=== PATIENT | female | born 1995 ===

== ENCOUNTER 2024-06-05 20:10 | Emergency (ER) | payer MEDICAID, SELFPAY ==
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
[2024-06-05 20:58] VITALS: BP 105/70; PULSE 74; RESP 18; TEMP 37.2; O2SAT 99; BMI 27.2
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
--- NOTE | 2024-06-05 20:59 | ECG_ITS ---
Test Reason : chest pain Blood Pressure : */* mmHG Vent. Rate : 63 BPM Atrial Rate : 63 BPM P-R Int : 132 ms QRS Dur : 82 ms QT Int : 392 ms P-R-T Axes : 46 73 46 degrees QTcB Int : 401 ms Normal sinus rhythm with sinus arrhythmia Normal ECG No previous ECGs available Referred By: Fiordaliza Rojas Electronically Signed By: JOSE DANIEL MADERA MD
[2024-06-05 21:40] LABS: MANUAL DIFF FLAG NO
[2024-06-05 21:42] LABS: Basophils Percent Auto 0.2 % (0-2); Eosinophils Absolute Auto 0.2 X10*3/uL (0.0-0.4); Eosinophils Percent Auto 1.8 % (0-4); Hematocrit 35.8 % (37.0-47.0); Imm Gran Abs Auto 0.04 X10*3/uL (0.00-0.03); Imm Gran Pct Auto 0.3 % (0.0-0.4); Lymphocytes Absolute Auto 2.1 X10*3/uL (1.2-4.9); Lymphocytes Percent Auto 17.3 % (20-40); Mean Corpuscular HGB Conc 33.5 g/dl (31.0-35.0); Mean Corpuscular Hemoglobin 31.6 pg (27.0-33.0); Mean Corpuscular Volume 94.2 fL (80.0-98.0); Monocytes Absolute Auto 0.9 X10*3/uL (0.1-1.2); Monocytes Percent Auto 7.1 % (2-11); Neutrophils Absolute Auto 8.8 x10*3/uL (2.0-8.3); Neutrophils Percent Auto 73.3 % (45-73); Platelet Count 205 X10*3/uL (160-400); Red Cell Distribution Width 12.9 % (11.0-16.0); White Blood Count 12.1 X10*3/uL (4.8-10.8)
[2024-06-05 21:45] LABS: VBG Base Excess -2.9 mmol/L; VBG HCO3 20 mmol/L (22-26); VBG pCO2 32 mmHg; VBG pH 7.41 (7.32-7.43); VBG pO2 104 mmHg
[2024-06-05 21:53] LABS: Venous Blood Gas Refer to POC result
[2024-06-05 21:53] LABS: Carbon Monoxide POC 5.5 %
[2024-06-05 21:54] LABS: Carbon Monoxide Refer to POC result
--- NOTE | 2024-06-05 21:54 | PC.NURSE ---
this rn took critical lab value- carbon monoxide 5.5. dr. ruvalcaba aware.
[2024-06-05 22:05] LABS: Blood Urea Nitrogen 15 mg/dL (9-16); Calcium 8.6 mg/dL (8.4-10.2); Creatinine Clr Calc Pharmacy 83.7; Estimated Glomerular Filt Rate > 60; Glucose Random 99 mg/dL (60-115)
[2024-06-05] MEDS: Albuterol Sulfate 90 MCG 8 GM INHALER 4 PUFF INHALE (23:08)
[2024-06-05] MEDS: predniSONE 20 MG TABLET 40 MG PO (23:08)
[2024-06-05 23:14] VITALS: BP 105/71; PULSE 61; RESP 18; TEMP 37; O2SAT 99
[2024-06-05 23:37] LABS: Anion Gap 12 (12-20); Carbon Dioxide 18 mmol/L (22-29); Chloride 113 mmol/L (96-108); Potassium 4.6 mmol/L (3.3-5.1); Sodium 138 mmol/L (135-145)
== END 2024-06-05 23:21 | disposition home or self-care (01) ==
LOC: HO.ED 23:10
PROVIDERS: Registered Nurse Emergency; Emergency Provider Internal Medicine
DX: T59.811A Toxic effect of smoke, accidental (unintentional), initial encounter (principal); J45.909 Unspecified asthma, uncomplicated; Y92.89 Other specified places as the place of occurrence of the external cause
CPT/HCPCS: 36415; 71046; 80048; 82375; 82803; 85025; 93005; 99283; 99284

== ENCOUNTER → 2024-06-05 20:59 | Outpatient (BNV) | payer MEDICAID, SELFPAY | PROVIDERS: Visit Provider Radiology Diagnostic Radiology | DX: J70.5 Respiratory conditions due to smoke inhalation (principal) | CPT/HCPCS: 71046 ==

== ENCOUNTER → 2024-06-05 20:59 | Outpatient (BNV) | payer MEDICAID, SELFPAY | PROVIDERS: Emergency Provider Internal Medicine; Visit Provider Internal Medicine Cardiovascular Disease | DX: R07.9 Chest pain, unspecified (principal) | CPT/HCPCS: 93010 ==

== ENCOUNTER 2024-09-23 15:41 | Emergency (ER) | payer MEDICAID, SELFPAY ==
--- NOTE | ~2024-09-23 | CT_ITS ---
CLINICAL HISTORY: sore throat, induration of L submental region CT soft tissue neck with contrast Comparison: None available Findings: The tonsils are enlarged and edematous, greater on the left. There is a left peritonsillar low attenuating lesion with subtle peripheral enhancement measuring 0.9 x 2.1 x 1.7 cm (measured on series 2, image 40 and series 6, image 26). There is a 2nd low attenuating lesion superiorly with definitive peripheral enhancement in the left peritonsillar region measuring 0.7 x 0.8 x 1.0 cm ( measured series 2, image 47 and series 6, image 28 ). Otherwise normal pharyngeal mucosa, oral cavity and larynx. Cervical lymphadenopathy measures up to 1.4 cm in short axis. Normal parotid and submandibular glands. Unremarkable thyroid. Normal vessels and carotid space. No acute fracture. The lung apices are clear. Impression: Tonsillitis. Left peritonsillar phlegmon/ developing abscess measuring up to 2.1 cm. Associated lymphadenopathy. This document has been electronically signed by: Ana Lilia Phelps MD on 09/23/2024 19:11:42
[2024-09-23 15:45] VITALS: BP 102/70; PULSE 72; RESP 16; TEMP 36.7; O2SAT 99; BMI 26.3
--- NOTE | 2024-09-23 16:00 | ED_ITS ---
HPI - General Adult General Chief complaint: General Medical Stated complaint: Sore throat/Body aches Time Seen by Provider: 09/23/24 16:03 Source: patient Mode of arrival: ambulatory Limitations: no limitations History of Present Illness ED Provider: Faustina Moore PA-C HPI narrative: 28-year-old female without a significant medical history presents to the ED after developing a sore throat around 3:00 a.m. today while at work. Patient states this started experiencing difficulty swallowing, with pain of the left jaw/neck. Patient states they were having difficulty sleeping after getting home from work due to pain. Patient has not taken any medication for pain management. Denies sick contacts. Related Data Previous Rx's ?Medication ?Instructions ?Recorded albuterol sulfate 90 mcg/actuation 2 puff inhalation Q 6H PRN 06/05/24 aerosol inhaler shortness of breath or wheez ing #8.5 grams prednisone 20 mg tablet 40 mg (2 x 20 mg) PO DAILY # 10 tabs 06/05/24 acetaminophen 160 mg/5 mL oral 640 mg (20 mL) PO Q6H P RN fever or 09/23/24 liquid pain #473 mL amoxicillin 250 mg-potassium 10 ml PO TID 10 days #300 mL 09/23/24 clavulanate 62.5 mg/5 mL oral suspension (Augmentin) oxycodone 5 mg tablet 5 mg PO Q6H PRN pain #14 tab s 09/23/24 Allergies Allergy/AdvReac Type Severity Reaction Status Date / Time ibuprofen Allergy Unknown Verified 09/23/24 15:51 Review of Systems 2 Review of Systems: CONST: Negative for fever, body aches and chills. HENT: Negative for neck pain/stiffness, headache, congestion, sore throat, swelling. POS sore throat EYES: Negative for discharge/pain or vision changes. RESP: Negative for cough/hemoptysis and shortness of breath. CV: Negative chest pain, difficulty breathing, palpitations. ABD: Negative pain, nausea, vomiting. : Negative increase frequency, dysuria, blood in urine or stool. MUSC: Negative for muscle aches, edema. SKIN: Negative rash, lesions/sores. NEURO: Negative headache, dizziness, weakness. Yes all other systems are reviewed and are negative PMFSH Past Medical History Attestation statement: The following information was validated with the patient. Source: old records reviewed and nursing notes reviewed Physical Exam ED Vital Signs: Vital Signs - 24 hr 09/23/24 15:45 09/23/24 18:16 Temperature 98.1 F 98.2 F Pulse Rate 72 66 Respiratory Rate 16 16 Blood Pressure 102/70 111/62 Pulse Oximetry 99 98 Oxygen Delivery Method Room Air Room Air BMI result Body Mass Index 26.3 GENERAL APPEARANCE: ?AxOx4, generally well-appearing, no acute distress. HEENT: ?NC, AT. MMM. EOMI, clear conjunctiva, posterior oropharynx with mild erythema, tonsillar edema of the left side, mild submental induration, no sublingual edema, no trismus, handling oral secretions, airway protected, speaking full clear sentences, NECK: ?Anterior lymphadenopathy of the left side.? No stiffness or restricted ROM. HEART:? Normal rate and regular rhythm, normal S1/S2, no m/r/g LUNGS:? CTAB, moving air well. No crackles or wheezes are heard. ABDOMEN: ?Soft, nontender, nondistended with good bowel sounds heard. EXTREMITIES: ?Without cyanosis, clubbing or edema. NEUROLOGICAL: ?Grossly nonfocal. Alert and oriented, moving all 4 extremities. Observed to ambulate with normal gait. Skin: ?Warm and dry without any rash. Course Course Course Narrative: This is a Rapid Medical Examination (RME) performed by César Mahajan PA-C in triage. Full HPI, ROS, assessment and treatment plan per primary provider in the Main ED. 28 yo presenting for evaluation of sore throat, body aches, headache and subjective fevers at home that started last night. no known sick contacts. VSS in triage. appears well Plan: strep and viral swabs Medications Administered Discontinued Medications Generic Name Dose Route Start Last Admin Trade Name Freq PRN Reason Stop Dose Admin Ceftriaxone Sodium 2 gm 09/23/24 16:48 09/23/24 18:41 Ceftriaxone Sodium 2 Gm Vial IVPUSH 09/23/24 16:49 2 gm ONCE ONE Administration Dexamethasone Sodium Phosphate 10 mg 09/23/24 16:48 09/23/24 18:41 Dexamethasone Sod Phosphate 10 Mg/Ml Vial IVPUSH 09/23/24 16:49 10 mg ONCE ONE Administration Lactated Ringer's 1,000 mls @ 999 mls/hr 09/23/24 16:48 09/23/24 18:42 Lr IV 09/23/24 17:48 999 mls/hr .Q1H1M ONE Administration Acetaminophen 1,000 mg in 100 mls @ 400 mls/hr 09/23/24 16:48 09/23/24 18:42 Ofirmev IV 09/23/24 17:02 400 mls/hr ONCE ONE Administration Iohexol 100 ml 09/23/24 18:30 09/23/24 18:31 Iohexol 350 Mg/Ml 100 Ml Infus..Btl IV 09/23/24 18:31 60 ml ONCE ONE Administration Ketorolac Tromethamine 15 mg 09/23/24 16:48 09/23/24 18:41 Ketorolac Tromethamine 15 Mg/Ml Vial IVPUSH 09/23/24 16:49 15 mg ONCE ONE Administration Procedures Abscess I/D Site: other (Peritonsillar) Side (if applicable): left Local Anesthetic: other anesthetic (Lidocaine lollipops topical anesthetic) Amount of anesthesia used (mL): 10 Technique: needle aspiration Amount of fluid expressed (mL): 1 Sent for culture/gram staining?: No Irrigation: No Packing used?: none Complications: bleeding Medical Decision Making Medical Decision Making MDM Narrative: 28-year-old female without a significant medical history presents to the ED after developing a sore throat around 3:00 a.m. today while at work. Patient states this started experiencing difficulty swallowing, with pain of the left jaw/neck. Patient states they were having difficulty sleeping after getting home from work due to pain. Patient has not taken any medication for pain management. Denies sick contacts. VSS, BP of 102/70, pulse rate 72 beats per minute, respiratory rate 16, patient afebrile with oral temp of 98.1?, O2 saturation 99% on room air. On physical exam patient is uncomfortable, however nontoxic appearing, no acute distress, posterior oropharynx with mild erythema, left tonsillar edema, without uvular edema, no trismus, mild submental induration of the left side, patient handling oral secretions, no vocal changes. 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 Patient does not meet sepsis criteria at this time. Viral serology negative, rapid strep negative. Patient being medicated with IV fluids, 10 mg IV dexamethasone, 15 mg IV ketorolac, 1 g IV Tylenol, 2 g IV ceftriaxone for empirical coverage. Patient being signed out to my colleague Dr. Duvall who will follow the course and resume care of the patient. Patient aware of this change in care. Behzad Duvall MD 09/23/24 21:14 , I assumed care of this patient from my colleague, physician clinical trials assistant Teresa Weems pending the patient's CT scan of your head and neck. CT scan did reveal 2.0 cm abscess in the left peritonsillar area. The patient's abscess was aspirated with an 18 gauge needle and 10 cc syringe. A small amount of purulent material (1 mL) was drained. The patient was given morphine 4 mg IV x2. Patient was discharged home with prescriptions for Augmentin suspension 250-62.5 mg per 5 mL , 10 mL t.i.d. times 10 days, acetaminophen 160 mg per 5 mL, 640 mg q.6 hours PRN pain or fever and oxycodone 5 mg tablets, q.6 hours PRN pain. She was advised to gargle salt water 3 times a day. Patient was given printed and verbal instructions and discharged home. I did tell the patient that if her symptoms got worse you should consider going to [facility] or [facility] since we do not have ENT surgeons here at this facility. I did tell her that if she came here we would treat her but if she needed ENT intervention we would have to transfer her to another facility. Differential Diagnosis Differential Diagnoses: The differential diagnosis associated with the presentation includes M[employer] PROGRAMMER Valdez's angina RPA Tonsillitis Pharyngitis Admission/Observation Consideration of admission/observation: Escalation of care including admission/observation considered Lab Data 09/23/24 17:04 09/23/24 17:04 Labs: Lab Results 09/23/24 09/23/24 Range/Units 15:55 17:04 WBC 14.2 H (4.8-10.8) X10*3/uL RBC 3.79 L (4.20-5.50) X10*6/uL Hgb 12.0 (12.0-16.0) g/dl Hct 34.5 L (37.0-47.0) % MCV 91.0 (80.0-98.0) fL MCH 31.7 (27.0-33.0) pg MCHC 34.8 (31.0-35.0) g/dl RDW 13.2 (11.0-16.0) % Plt Count 222 (160-400) X10*3/uL MPV 9.1 L (9.4-12.3) fL Immature Gran % (Auto) 0.4 (0.0-0.4) % Neut % (Auto) 74.2 H (45-73) % Lymph % (Auto) 16.1 L (20-40) % [place] % (Auto) 8.5 (2-11) % Eos % (Auto) 0.5 (0-4) % Baso % (Auto) 0.3 (0-2) % Lymph # (Auto) 2.3 (1.2-4.9) X10*3/uL [place] # (Auto) 1.2 (0.1-1.2) X10*3/uL Eos # (Auto) 0.1 (0.0-0.4) X10*3/uL Baso # (Auto) 0.0 (0.0-0.2) X10*3/uL Abs Immat Gran (auto) 0.05 H (0.00-0.03) X10*3/uL Absolute Neuts (auto) 10.5 H (2.0-8.3) x10*3/uL Absolute Nucleated RBC 0.000 (0.0-0.012) X10*3/uL Nucleated RBC % (auto) 0.0 (0.0-0.2) /100WBC Sodium 139 (135-145) mmol/L Potassium 3.8 (3.3-5.1) mmol/L Chloride 110 H (96-108) mmol/L Carbon Dioxide 23 (22-29) mmol/L Anion Gap 10 L (12-20) BUN 7 L (9-16) mg/dL Creatinine 0.61 (0.5-1.4) mg/dL Estim Creat Clear Calc 107.3 Estimated GFR > 60 Random Glucose 90 (60-115) mg/dL Calcium 8.8 (8.4-10.2) mg/dL Magnesium 2.0 (1.6-2.6) mg/dL Total Bilirubin 0.7 (0.0-1.0) mg/dL AST 23 (5-31) U/L ALT 16 (0-31) U/L Alkaline Phosphatase 58 (39-117) U/L Total Protein 6.9 (6.5-8.0) g/dL Albumin 4.2 (3.5-5.0) g/dL Influenza Type A (PCR) NEGATIVE (Negative) Influenza Type B (PCR) NEGATIVE (Negative) RSV RNA Qual (PCR) NEGATIVE (Negative) SARS-CoV-2 RNA (RT-PCR) NEGATIVE (Negative) S. pyogenes GrpA SUMMER Negative (Negative) Radiology Impression Discussion of test interpretation with radiology: I have reviewed the radiologist's reading. Radiologist Impression: CT soft tissue neck with contrast Comparison: None available Findings: The tonsils are enlarged and edematous, greater on the left. There is a left peritonsillar low attenuating lesion with subtle peripheral enhancement measuring 0.9 x 2.1 x 1.7 cm (measured on series 2, image 40 and series 6, image 26). There is a 2nd low attenuating lesion superiorly with definitive peripheral enhancement in the left peritonsillar region measuring 0.7 x 0.8 x 1.0 cm ( measured series 2, image 47 and series 6, image 28 ). Otherwise normal pharyngeal mucosa, oral cavity and larynx. Cervical lymphadenopathy measures up to 1.4 cm in short axis. Normal parotid and submandibular glands. Unremarkable thyroid. Normal vessels and carotid space. No acute fracture. The lung apices are clear. Impression: Tonsillitis. Left peritonsillar phlegmon/ developing abscess measuring up to 2.1 cm. Associated lymphadenopathy. This document has been electronically signed by: Ana Lilia Phelps MD on 09/23/2024 19:11:42 Prescription Management I considered prescription management with: Pain Medication (Oxycodone and Tylenol) and Antibiotic (Augmentin suspension) Discharge Plan Discharge Clinical Impression: Peritonsillar abscess Patient Disposition: Home, Self-Care Instructions: Peritonsillar Abscess (ED) Additional Instructions: Your blood work was unremarkable. Your rapid strep test was negative. The CT scan of your neck did reveal a 2.0 cm left-sided peritonsillar abscess. We are able to drain a small amount of pus from your abscess. You were treated with ceftriaxone 1 g IV. This antibiotic will last 24 hours. I am starting you on Augmentin (amoxicillin/clavulanate) 250/62.5 mg/5 mL, take 10 mL every 6 hours (3 times a day) while you are awake. Take this medication for 10 days. Take Tylenol (acetaminophen) 160 mg per 5 mL, 20 mL every 6 hours as needed for pain. For pain not relieved by Tylenol take oxycodone 5 mg pills, 1 pill every 6 hours as needed for pain. Do not drive or work while taking this medication since they can cause sleepiness. Oxycodone is a narcotic medication that can be addicting. If you are concerned about addiction you can ask the pharmacist for less pills or do not get this prescription filled. Take 1 tsp of salt and makes it in 8 oz of warm water and gargle the solution. Do this 3 times a day for the next 2-3 days. If your symptoms get worse, you will need to see an ears nose and throat doctor (ENT). Unfortunately, at this facility we do not have ENT doctors available to the emergency department therefore I recommend that you go to either [facility] with the [facility] where they having ENT doctors. If you return here, we will treat you but if you need ENT surgery get, we will have to transfer you to another hospital. Please return to the emergency department if your symptoms get worse or if you develop any symptoms that are concerning to you. Please see the return to work note Prescriptions: New amoxicillin-pot clavulanate [Augmentin] 250-62.5 mg/5 mL suspension for reconstitution 10 ml PO TID 10 Days Qty: 300 0RF acetaminophen 160 mg/5 mL liquid 640 mg PO Q6H PRN (Reason: fever or pain) Qty: 473 0RF oxycodone 5 mg tablet 5 mg PO Q6H PRN (Reason: pain) Qty: 14 0RF Rx Instructions: Partial Fill upon patient request. No Action prednisone 20 mg tablet 40 mg PO DAILY Qty: 10 0RF albuterol sulfate 90 mcg/actuation HFA aerosol inhaler 2 puff inhalation Q6H PRN (Reason: shortness of breath or wheezing) Qty: 8.5 0RF Stand Alone Forms: Work/School Release Print Language: Pakistani
[2024-09-23 16:13] LABS: IDNOW Serial# 58CA691E; Strep A Nucleic Acid Negative (Negative)
[2024-09-23 16:38] LABS: Resp Syncy Virus RNA Qual PCR NEGATIVE (Negative); SARS COV2 PCR INHOUSE NEGATIVE (Negative)
[2024-09-23 17:14] LABS: MANUAL DIFF FLAG NO
[2024-09-23 17:15] LABS: Hematocrit 34.5 % (37.0-47.0); Hemoglobin 12.0 g/dl (12.0-16.0); Imm Gran Abs Auto 0.05 X10*3/uL (0.00-0.03); Imm Gran Pct Auto 0.4 % (0.0-0.4); Lymphocytes Absolute Auto 2.3 X10*3/uL (1.2-4.9); Mean Corpuscular HGB Conc 34.8 g/dl (31.0-35.0); Mean Corpuscular Hemoglobin 31.7 pg (27.0-33.0); Mean Corpuscular Volume 91.0 fL (80.0-98.0); NRBC Abs Auto 0.000 X10*3/uL (0.0-0.012); NRBC Pct Auto 0.0 /100WBC (0.0-0.2); Platelet Count 222 X10*3/uL (160-400); Red Blood Count 3.79 X10*6/uL (4.20-5.50); White Blood Count 14.2 X10*3/uL (4.8-10.8)
[2024-09-23 17:28] LABS: Alanine Aminotransferase 16 U/L (0-31); Albumin Level 4.2 g/dL (3.5-5.0); Alkaline Phosphatase 58 U/L (39-117); Anion Gap 10 (12-20); Aspartate Amino Transferase 23 U/L (5-31); Blood Urea Nitrogen 7 mg/dL (9-16); Calcium 8.8 mg/dL (8.4-10.2); Carbon Dioxide 23 mmol/L (22-29); Chloride 110 mmol/L (96-108); Creatinine Clr Calc Pharmacy 107.3; Estimated Glomerular Filt Rate > 60; Magnesium 2.0 mg/dL (1.6-2.6); Potassium 3.8 mmol/L (3.3-5.1); Sodium 139 mmol/L (135-145); Total Protein 6.9 g/dL (6.5-8.0)
[2024-09-23 18:16] VITALS: BP 111/62; PULSE 66; RESP 16; TEMP 36.8; O2SAT 98
[2024-09-23] MEDS: iohexoL 350 MG/ML 100 ML INFUS..BTL IV (18:31)
[2024-09-23] MEDS: Lactated Ringers 1,000 ML 999 ML IV (18:42)
[2024-09-23] MEDS: Lidocaine HCl 4 % Laryng-O-Jet 4 ML 1 APPL TOPICAL (20:37)
[2024-09-23 20:51] VITALS: BP 109/59; PULSE 60; RESP 20; TEMP 36.3; O2SAT 98
[2024-09-23 22:17] VITALS: BP 103/63; PULSE 58; RESP 18; TEMP 36.3; O2SAT 100
[2024-09-23 22:27] VITALS: BP 103/63; PULSE 58; RESP 18; TEMP 36.3; O2SAT 100
== END 2024-09-23 22:28 | disposition home or self-care (01) ==
PROVIDERS: Emergency Medicine; Emergency Provider Emergency Medicine Emergency Medical Services
DX: J36 Peritonsillar abscess (principal); J02.9 Acute pharyngitis, unspecified
CPT/HCPCS: 36415; 70491; 80053; 83735; 85025; 87637; 87651; 96361; 96374; 96375; 96376; 99284; J0131; J0696; J1100; J1885; J2270; J7120; Q9967

== ENCOUNTER → 2024-09-23 16:45 | Outpatient (BNV) | payer MEDICAID, SELFPAY | PROVIDERS: Emergency Provider Emergency Medicine Emergency Medical Services; Visit Provider Radiology Diagnostic Radiology | DX: J02.9 Acute pharyngitis, unspecified (principal) | CPT/HCPCS: 70491 ==

== ENCOUNTER 2025-02-09 19:27 | Emergency (ER) | payer SELFPAY ==
--- NOTE | ~2025-02-09 | XR_ITS ---
CLINICAL HISTORY: cough 2 view chest x-ray Comparison: CR - XR CHEST 2V - 06/05/24 21:11 EDT Findings: No consolidation or effusion. Heart size is normal. No acute fracture. IMPRESSION: 1. No acute findings. This document has been electronically signed by: Grzegorz Aguirre MD on 02/09/2025 21:17:55
[2025-02-09 19:52] VITALS: BP 120/60; PULSE 94; RESP 18; TEMP 37.1; O2SAT 97; BMI 27.2
--- NOTE | 2025-02-09 19:57 | ED_ITS ---
HPI - General Adult General Chief complaint: Upper Respiratory Symptoms Stated complaint: not sure what they have but feeling worse History of Present Illness HPI narrative: Patient left before completion of treatment by ED provider Related Data Previous Rx's ?Medication ?Instructions ?Recorded albuterol sulfate 90 mcg/actuation 2 puff inhalation Q 6H PRN 06/05/24 aerosol inhaler shortness of breath or wheez ing #8.5 grams prednisone 20 mg tablet 40 mg (2 x 20 mg) PO DAILY # 10 tabs 06/05/24 acetaminophen 160 mg/5 mL oral 640 mg (20 mL) PO Q6H P RN fever or 09/23/24 liquid pain #473 mL amoxicillin 250 mg-potassium 10 ml PO TID 10 days #300 mL 09/23/24 clavulanate 62.5 mg/5 mL oral suspension (Augmentin) oxycodone 5 mg tablet 5 mg PO Q6H PRN pain #14 tab s 09/23/24 Allergies Allergy/AdvReac Type Severity Reaction Status Date / Time ibuprofen Allergy Unknown Verified 02/09/25 19:54 [facility] Social History Social History Advance Directives: No Advance Directives Information Provided: No Do you have a plan to hurt others: No Plan Physical Exam ED Vital Signs: Vital Signs - 24 hr 02/09/25 19:52 Temperature 98.7 F Pulse Rate 94 Respiratory Rate 18 Blood Pressure 120/60 Pulse Oximetry 97 Oxygen Delivery Method Room Air BMI result Body Mass Index 27.2 Course Course Course Narrative: RME: 29 yold female presents to the ED for URI symptoms. patient states coughin, congestion, diarrhea, vomitting. Swabs and xray orderd. Medical Decision Making Lab Data Labs: Lab Results 02/09/25 Range/Units 20:08 Influenza Type A (PCR) POSITIVE A (Negative) Influenza Type B (PCR) NEGATIVE (Negative) RSV RNA Qual (PCR) NEGATIVE (Negative) SARS-CoV-2 RNA (RT-PCR) NEGATIVE (Negative) S. pyogenes GrpA SUMMER Negative (Negative) Discharge Plan Discharge Clinical Impression: Upper respiratory infection Patient Disposition: Left W/O Completing Treatment Prescriptions: No Action prednisone 20 mg tablet 40 mg PO DAILY Qty: 10 0RF albuterol sulfate 90 mcg/actuation HFA aerosol inhaler 2 puff inhalation Q6H PRN (Reason: shortness of breath or wheezing) Qty: 8.5 0RF amoxicillin-pot clavulanate [Augmentin] 250-62.5 mg/5 mL suspension for reconstitution 10 ml PO TID 10 Days Qty: 300 0RF acetaminophen 160 mg/5 mL liquid 640 mg PO Q6H PRN (Reason: fever or pain) Qty: 473 0RF oxycodone 5 mg tablet 5 mg PO Q6H PRN (Reason: pain) Qty: 14 0RF Rx Instructions: Partial Fill upon patient request. Discharge Date/Time: 02/09/25 23:42
[2025-02-09 20:33] LABS: IDNOW Serial# 6674DD1D; Strep A Nucleic Acid Negative (Negative)
[2025-02-09 21:06] LABS: Resp Syncy Virus RNA Qual PCR NEGATIVE (Negative); SARS COV2 PCR INHOUSE NEGATIVE (Negative)
== END 2025-02-09 23:42 | disposition left against medical advice (07) ==
LOC: HO.ED 23:40
PROVIDERS: Emergency Provider Emergency Medicine
DX: J06.9 Acute upper respiratory infection, unspecified (principal); R05.9 Cough, unspecified; Z03.818 Encounter for observation for suspected exposure to other biological agents ruled out
CPT/HCPCS: 71046; 87637; 87651; 99281; 99283

== ENCOUNTER → 2025-02-09 20:55 | Outpatient (BNV) | payer SELFPAY | PROVIDERS: Visit Provider Radiology Diagnostic Radiology | DX: R05.9 Cough, unspecified (principal) | CPT/HCPCS: 71046 ==